=== PATIENT | male | born 1985 | race Caucasian/White ===

== ENCOUNTER 2022-06-27 18:26 | Emergency (ER) | payer OTHER, SELFPAY ==
--- NOTE | ~2022-06-27 | XR_ITS ---
EXAMINATION: XR foot RT min 3V DATE: 06/27/2022 18:52 INDICATION: Stabbing injury with plantar pain to the right great toe TECHNIQUE: Dorsoplantar, two oblique and lateral views of the right foot were obtained. COMPARISON: 12/01/2014 FINDINGS: Bone alignment is normal. No fracture. There is a small chronic appearing corticated likely sesamoid bone at the medial/plantar aspect of the base of the right first distal phalanx with similar ossicle seen at the identical location at the contralateral left great toe. Joint spaces are relatively prese rved. Small Achilles calcaneal spur. Soft tissues are unremarkable. IMPRESSION: 1. No acute osseous abnormality. Reviewed, dictated and finalized at location A.
[2022-06-27 18:38] VITALS: BP 133/87; PULSE 66; RESP 18; TEMP 36.9; O2SAT 99
[2022-06-27 18:47] VITALS: BP 133/87; PULSE 66; RESP 18; TEMP 36.9; O2SAT 99
--- NOTE | 2022-06-27 19:04 | ED.LOWEXIN ---
HPI - Extremity Injury (Lower) General Chief Complaint: Extremity Injury, Lower Stated Complaint: Right Foot Injury Time Seen by Provider: 06/27/22 18:52 Source: patient, RN notes reviewed and old records reviewed History of Present Illness HPI Narrative: 36 year old female presents to [facility] care with complaints of injury to his right foot 6 days ago when he rammed his right foot into a big wooden sign whie carrying stuff out of garage at work. Patient reports that he has been applying ice and taking Tylenol. Patient states that pain is better but still swollen and increased pain when ambulating on his right foot. Bruising and swelling to top of right foot and near right 1st toe. Patient reports that he fractured left great toe 7 years ago. MD complaint: foot injury (right) Onset (ago): day(s) (6) Injury: Right: foot (dorsal aspect and near 1st digit) Type of Injury: blunt Severity scale (1-10): 2 Exacerbating factors: weight bearing Treatments prior to arrival: cold therapy and other (tylenol) Related Data Home Medications Medication Instructions Recorded Confirmed No Home Medications 06/27/22 06/27/22 Allergies Allergy/AdvReac Type Severity Reaction Status Date / Time No Known Allergies Allergy Verified 06/27/22 18:46 Review of Systems Review of Systems: CONSTITUTIONAL: Denies fever, chills, or sweats. EYES: Denies visual changes, redness, or discharge. ENT: Denies rhinorrhea, congestion, sore throat, or otalgia. CARDIOVASCULAR: Denies chest pain, palpitations, or edema. RESPIRATORY: Denies cough or dyspnea. GASTROINTESTINAL: Denies abdominal pain, nausea, vomiting, or diarrhea. GENITOURINARY: Denies dysuria or hematuria. SKIN: Denies rash or itching. MUSCULOSKELETAL: Denies back pain,Positive for right foot pain dorsal aspect with swelling., or myalgia. NEUROLOGIC: Denies headache, numbness, or weakness. PSYCHIATRIC: Denies anxiety or depression. All systems reviewed & are unremarkable except as noted in HPI and below PMFSH Past Medical History Medical History (Updated 06/30/22 @ 16:07 by Cyndee Lo NP) Fracture of toe of left foot Surgical History Surgical History (Updated 06/30/22 @ 16:07 by Cyndee Lo NP) No history of previous surgery Social History Social History (Updated 06/30/22 @ 16:06 by Cyndee Lo NP) Smoking status: Never smoker Alcohol intake: never Substance use: never Living arrangements: alone Gender identity (if verbalized by the patient): Male Comments At time of signature, agree with nursing past medical, surgical, social and family history. There is no relevant family history pertinent to the presenting complaint Exam Narrative: GENERAL: Well-appearing, well-nourished, and in no acute distress. HEAD: Normocephalic, atraumatic. EYES: PERRLA and EOMI. ENT: Nares clear, no rhinorrhea or epistaxis. Mucous membranes moist. NECK: Supple.no lymphadenopathy CHEST: Clear to auscultation. No respiratory distress.SAO2 99% on room air HEART: Regular rate and rhythm. No murmur heard. Normal peripheral pulses. ABDOMEN: Soft, nontender, nondistended, normal active bowel sounds. EXTREMITIES: Normal range of motion. right foot edema with bruising to top of right foot and near 1st toe no obvious deformity, sensation, circulation and mobility intact, increased discomfort with ambulation with limping gait. SKIN: Warm, dry, no rash. NEURO: No focal deficits. Alert and oriented x3. Course Course Level of Care: Express Care Visit Vital Signs Vital signs: Vital Signs Temperature 36.9 C 06/27/22 18:38 Pulse Rate 66 06/27/22 18:38 Respiratory Rate 18 06/27/22 18:38 Blood Pressure 133/87 06/27/22 18:38 Pulse Oximetry 99 06/27/22 18:38 Oxygen Delivery Room Air 06/27/22 18:38 Temperature 36.9 C 06/27/22 18:47 Pulse Rate 66 06/27/22 18:47 Respiratory Rate 18 06/27/22 18:47 Blood Pressure 133/87 06/27/22 18:47 Pulse Oximetry
== END 2022-06-27 19:50 | disposition home or self-care (01) ==
PROVIDERS: Emergency Provider Registered Nurse
DX: S90.31XA Contusion of right foot, initial encounter (principal); W22.09XA Striking against other stationary object, initial encounter
CPT/HCPCS: 73630; 99213; G0463